=== PATIENT | male | born 1960 | race Caucasian/White ===

== ENCOUNTER 2017-04-03 07:32 | Inpatient (IN) | payer BC ==
[~2017-04-03] VITALS: Ht 175.3 cm; Wt 72.1 kg
[2017-04-03] VITALS (9 sets, daily range): BP systolic 135–161; BP diastolic 64–87
[~2017-04-03 07:32] MED LIST: FLEXERIL5 MG PO; MOTRIN800 MG PO; PERCOCET 5/31 TABLET PO; ZOFRAN4 MG PO
[2017-04-03 07:48] LABS: EOSINOPHIL (%) 0.6 % (0-5); IMMATURE GRANULOCYTE (%) 0.3 % (0.0-0.7); INSTRUMENT ABS NEUTROPHIL CT 3.2 K/uL; MCH 31.7 PG (29.0-34.0); MCHC 34.5 G/DL (30.0-36.0); MCV 91.9 FL (86-99); MEAN PLAT.VOLUME 9.6 uM^3 (9.0-12.4); MONOCYTE (%) 8.6 % (3-12); MONOCYTE COUNT 0.6 K/uL (0-0.8); NEUTROPHIL COUNT 3.2 K/uL (1.8-6.4); PLATELET COUNT 268 K/uL (156-360); RBC DIS.WIDTH-SD 40.7 % (39-53); RED BLOOD COUNT 4.79 M/uL (4.00-5.50); WHITE BLOOD COUNT 6.8 K/uL (4.1-10.2)
[2017-04-03 07:58] LABS: AMYLASE 41 IU/L (1-118); CHLORIDE 105 mEq/L (99-109); POTASSIUM 4.6 mEq/L (3.7-5.4); SODIUM 137 mEq/L (136-147)
[2017-04-03 08:00] LABS: GLUCOSE 127 mg/dL (70-99)
[2017-04-03 08:01] LABS: ANION GAP 9 MEQ/L (2-14)
[2017-04-03 08:03] LABS: GFR ESTIMATE (CALCULATED) > 59 mL/min/; SERUM ETHYL ALCOHOL < 10 mg/dL
[2017-04-03 08:04] LABS: UREA NITROGEN (BUN) 27 mg/dL (9-23)
[2017-04-03 08:06] LABS: LIPASE 20 U/L (1.0-51.0)
[2017-04-03] MEDS ORDERED: NAPROSYN500 MG PO (11:15)
[2017-04-03] MEDS ORDERED: AMBIEN10 MG PO (11:15)
[2017-04-03] MEDS ORDERED: ASPIRIN325 MG PO (11:16)
[2017-04-03] MEDS ORDERED: VALERIAN ROOT100 MG PO (11:17)
[2017-04-03] MEDS ORDERED: ULTRAM50 MG PO (11:17)
[2017-04-03] MEDS ORDERED: CHLOR-TRIMETON4 MG PO (11:18)
[2017-04-03 11:19] LABS: ADD MIUA? YES; BILIRUBIN NEGATIVE; BLOOD NEGATIVE; COLOR YELLOW ((YELLOW)); GLUCOSE (STRIP) NEGATIVE; KETONES 20; LEUKOCYTES NEGATIVE; NITRITE NEGATIVE; PROTEIN (STRIP) NEGATIVE; SPECIFIC GRAVITY 1.045 (1.000-1.030); UROBILINOGEN 0.2 MG/DL (0.2-1.0)
[2017-04-03 11:30] LABS: BACTERIA NONE SEEN /HPF; EPITHELIAL CELLS NONE SEEN /HPF; MUCUS TRACE /LPF; RED BLOOD CELLS 0-5 /HPF (0-5); UCUL ADDED? NO; WHITE BLOOD CELLS 0-5 /HPF (0-5)
[2017-04-03 11:31] LABS: AMPHETAMINE NEGATIVE (500 ng/mL); BARBITURATES NEGATIVE (200 ng/mL); BENZODIAZEPINES NEGATIVE (150 ng/mL); COCAINE NEGATIVE (150 ng/mL); INTERNAL CONTROLS VALID? YES; METHADONE NEGATIVE (200 ng/mL); METHAMPHETAMINE NEGATIVE (500 ng/mL); OPIATES (MORPHINE) NEGATIVE (100 ng/mL); OXYCODONE NEGATIVE (100 ng/mL); PHENCYCLIDINE NEGATIVE (25 ng/mL); PROPOXYPHENE NEGATIVE (300 ng/mL); THC CANNABINOIDS NEGATIVE (50 ng/mL); TRICYCLIC ANTIDEPRESSANTS NEGATIVE (300 ng/mL)
[2017-04-03 17:10] LABS: METH RESISTANT S AUREUS PCR NEGATIVE (NEGATIVE)
[2017-04-03 17:22] LABS: PROBE CHECK PASS; SPECIMEN PROCESSING CONTROL PASS
[2017-04-04] VITALS (11 sets, daily range): BP systolic 108–140; BP diastolic 61–79
[2017-04-04 05:18] LABS: HEMATOCRIT 42.1 % (38.0-50.0); MCH 32.1 PG (29.0-34.0); MCHC 34.2 G/DL (30.0-36.0); MCV 93.8 FL (86-99); MEAN PLAT.VOLUME 9.6 uM^3 (9.0-12.4); PLATELET COUNT 245 K/uL (156-360); RBC DIS.WIDTH-CV 12.1 % (11.8-14.6); RBC DIS.WIDTH-SD 42.5 % (39-53); RED BLOOD COUNT 4.49 M/uL (4.00-5.50); WHITE BLOOD COUNT 9.3 K/uL (4.1-10.2)
[2017-04-04 05:47] LABS: ALKALINE PHOSPHATASE 41 IU/L (3-129); ANION GAP 10 MEQ/L (2-14); CHLORIDE 106 MEQ/L (99-109); GFR ESTIMATE (CALCULATED) > 59 mL/min/; GLUCOSE 124 mg/dL (70-99); POTASSIUM 4.4 MEQ/L (3.7-5.4); SAMPLE HEMOLYSIS CHECK 0; SAMPLE ICTERIC CHECK 0; SAMPLE LIPEMIA CHECK 0; SODIUM 139 MEQ/L (136-147); TOTAL BILIRUBIN 0.7 MG/DL (0.0-1.0); UREA NITROGEN (BUN) 16 mg/dL (9-23)
[2017-04-04] MEDS ORDERED: DIAZEPAM5 MG PO (14:25)
[2017-04-04] MEDS ORDERED: GABAPENTIN300 MG PO (14:25)
[2017-04-04] MEDS ORDERED: OXYCODONE HCL5 MG PO (14:25)
[2017-04-04] MEDS ORDERED: CHLORZOXAZONE500 MG PO (14:25)
[2017-04-04] MEDS ORDERED: OXYCONTIN15 MG PO (14:25)
== END 2017-04-04 19:01 | disposition home or self-care (01) | DRG 965 ==
LOC: TRA → EDOF 11:48 → 4WEST 11:48 → ENRESERV 11:51 → EDOF 12:33 → ENRESERV 12:35 → 4WEST 14:14 → CANRESERV 04-04 14:19 → ENRESERV 04-04 14:19 → 4WEST 04-04 19:01
PROVIDERS: Emergency Medicine; Surgery
DX: S06.2X9A Diffuse traumatic brain injury with loss of consciousness of unspecified duration, initial encounter (principal); S06.5X9A Traumatic subdural hemorrhage with loss of consciousness of unspecified duration, initial encounter; V10.4XXA Pedal cycle driver injured in collision with pedestrian or animal in traffic accident, initial encounter; S06.0X1A Concussion with loss of consciousness of 30 minutes or less, initial encounter; E78.5 Hyperlipidemia, unspecified; K21.9 Gastro-esophageal reflux disease without esophagitis; G47.00 Insomnia, unspecified; J30.2 Other seasonal allergic rhinitis; I25.10 Atherosclerotic heart disease of native coronary artery without angina pectoris; M50.20 Other cervical disc displacement, unspecified cervical region; S14.3XXA Injury of brachial plexus, initial encounter; S06.5X1A Traumatic subdural hemorrhage with loss of consciousness of 30 minutes or less, initial encounter; S42.102A Fracture of unspecified part of scapula, left shoulder, initial encounter for closed fracture; S06.2X1A Diffuse traumatic brain injury with loss of consciousness of 30 minutes or less, initial encounter; F10.10 Alcohol abuse, uncomplicated; Y90.0 Blood alcohol level of less than 20 mg/100 ml; Y92.482 Bike path as the place of occurrence of the external cause; Z79.82 Long term (current) use of aspirin; Z88.0 Allergy status to penicillin
CPT/HCPCS: 70450; 71260; 72125; 72129; 72132; 72141; 73060; 74177; 80048; 80053; 81003; 82150; 83690; 85025; 85027; 86850; 86900; 86901; 87641; 93005; 99281; 99285; G0480; J1100; J1170; J2405; J3010; J3480; J7050

== ENCOUNTER 2017-05-07 06:27 | Day surgery (SDC) | payer BC ==
[~2017-05-07] VITALS: Ht 175.3 cm; Wt 73.0 kg
[~2017-05-07 06:27] MED LIST changes: +AMBIEN10 MG PO; +ASPIRIN325 MG PO; +CHLOR-TRIMETON4 MG PO; +CHLORZOXAZONE500 MG PO; +DIAZEPAM5 MG PO; +GABAPENTIN300 MG PO; +NAPROSYN500 MG PO; +OXYCODONE HCL5 MG PO; +OXYCONTIN15 MG PO; +ULTRAM50 MG PO; +VALERIAN ROOT100 MG PO
== END 2017-05-07 12:52 | disposition home or self-care (01) ==
LOC: CATH 06:27
DX: I25.10 Atherosclerotic heart disease of native coronary artery without angina pectoris (principal); I27.20 Pulmonary hypertension, unspecified; R91.1 Solitary pulmonary nodule; I05.9 Rheumatic mitral valve disease, unspecified; Z82.49 Family history of ischemic heart disease and other diseases of the circulatory system
CPT/HCPCS: 93005; C1769; C1887; J1644; J2250; J3010; J7040

== ENCOUNTER → 2017-05-08 | Outpatient (CLI) | payer BC | END | disposition home or self-care (01) | LOC: RES 09:00 | DX: I27.9 Pulmonary heart disease, unspecified (principal); J45.909 Unspecified asthma, uncomplicated | CPT/HCPCS: 94060; 94727; 94729 ==